=== PATIENT | female | born 1955 | race Caucasian/White ===

== ENCOUNTER → 2017-02-06 | Outpatient (CLI) | payer OTHER ==
[~2017-02-06] MED LIST: ARIMIDEX1 MG PO; CALCIUM 600 +1 EAC2 PO; CARAFATE100 MG/ML PO; CELEXA20 MG PO; CENTANY30 GM TP; COUMADIN5 MG PO; DOXYCYCLINE HY100 M3 PO; ESGIC CAPSULE1 EACH PO; FIORICET 50-301 EACH PO; FIORICET WI1 CAPSULE PO; FIORICET,ESG1 TABLET PO; FLAGYL500 MG PO; FLEXERIL10 MG PO; HYOSCYAMINE0.125 M2 PO; LEVAQUIN500 MG PO; LOTEMAX5 GM BOTH EYES; MAGNESIUM250 MG PO; MAXALT5 MG PO; MAXZIDE 37.5 M1 EACH PO; OMEPRAZOLE40 M1 PO; PERCOCET 5/31 TABLET PO; PONARIS NASAL E30 ML BOTH NARES; PROMETHAZINE HC25 M1 PO; PROTONIX40 MG PO; RELPAX40 MG PO; RESTASIS 01 DROP/0.4 BOTH EYES; STRESS FORMULA1 EA13 PO; TESSALON PERLE100 MG PO; VITAMIN B-6100 MG PO; WELLBUTRIN XL300 MG PO; ZANTAC300 MG PO; ZITHROMAX Z-PA250 MG PO; ZOLOFT100 MG PO; protonix; simvastatin
== END | disposition home or self-care (01) ==
LOC: NUC 08:29
DX: K21.9 Gastro-esophageal reflux disease without esophagitis (principal); K31.84 Gastroparesis
CPT/HCPCS: 78264; A9541